=== PATIENT | female | born 1960 | race Caucasian/White ===

== ENCOUNTER → 2018-06-05 | Outpatient (CLI) | payer BC ==
[2018-06-07 12:39] LABS: QUANTIF MITOGEN-NIL >10.00 IU/ML; QUANTIFERON POSITIVE (NEGATIVE); QUANTIFERON NIL 0.19 IU/ML
== END | disposition home or self-care (01) ==
LOC: C.LAB 11:59
PROVIDERS: ATTEND Family Medicine
DX: Z01.84 Encounter for antibody response examination (principal); Z11.1 Encounter for screening for respiratory tuberculosis

== ENCOUNTER 2023-04-13 13:45 | Inpatient (IN) ==
[2023-04-13] MEDS ORDERED: SODIUM CHLORIDE 0.9% 500 ML IV STA (14:11)
[2023-04-13 14:45] LABS: Hematocrit (blood only) 39.9 % (37.0-47.0); Hemoglobin 13.7 g/dl (12.0-16.0); Mean Corpuscular Hemoglobin 29.1 pg (25.0-34.0); Mean Corpuscular Hgb Conc 34.3 g/dL (32.0-36.0); Mean Corpuscular Volume 84.9 fL (80.0-100.0); Mean Platelet Volume 10.5 fL (9.4-12.4); Platelet Count 163 K/uL (130-400); RDW Coefficient of Variation 13.3 % (11.5-14.5); RDW Standard Deviation 41.8 fL (36.4-46.3); White Blood Count 15.32 K/ul (4.8-10.8)
[2023-04-13 14:58] LABS: Albumin Globulin Ratio 1.3 (0.9-2); Albumin Level 3.9 gm/dl (3.4-5.0); BUN Creatinine Ratio 15.5 (10-20); Bilirubin,Total 1.4 mg/dl (0.2-1.0); Calcium 9.1 mg/dl (8.6-10.3); Creatinine Clr Calc Pharmacy 33.8 ml/min; Est GFR (African American) 35.5 ml/min; Est GFR (Non-African American) 30.7 ml/min; Potassium 3.3 mmol/L (3.5-5.1); Total Protein 6.9 gm/dl (6.0-8.3)
[2023-04-13] MEDS ORDERED: SODIUM CHLORIDE 0.9% 1000ML 2,000 ML IV ONE (15:23)
--- NOTE | 2023-04-13 15:23 | Emergency Department Note ---
History of Present Illness General Chief complaint: Kidney Stone Stated complaint: REF BY DOC, KIDNEY STONE Time Seen by Provider: 04/13/23 14:59 History of Present Illness 62-year-old female with past medical history significant for kidney stones, hypertension, dyslipidemia who presents emergency department for evaluation of kidney stone. Patient was referred to the ED following being seen by her PCP earlier this morning. Patient states she started with left lower quadrant abdominal pain and vomiting on Sunday night. She noted some urinary frequency as well. She states these symptoms have since resolved however she notes continuing to feel "lousy" prompting evaluation by her PCP. Patient was febrile in her PCPs office as well as with her recent left abdominal pain she was referred to get an outpatient abdomen/pelvis CT scan. She was placed on Bactrim for presumed UTI. Outpatient CT scan noted left 10 mm obstructing calculus in the left proximal ureter with associated hydronephrosis and she was referred to ED at that time. Currently, patient denies fever/chills, nausea/vomiting, chest pain, shortness of breath, abdominal pain, diarrhea/constipation, urinary symptoms. She took 1 dose of her Bactrim so far. She has not taken anything for pain as she has none. Patient follows with Dr. Frye urology and has had lithotripsy and stenting placed for kidney stones previously but was on the right side. Home Medications Medication Instructions Recorded Confirmed Type cholecalciferol (vitamin D3) 50 2,000 units PO QAM 08/19/19 04/13/23 History mcg (2,000 unit) capsule multivitamin 1 tab PO QAM 08/19/19 04/13/23 History aspirin 81 mg tablet,delayed 81 mg PO QAM 10/31/19 04/13/23 History release atorvastatin 10 mg tablet 10 mg PO PM 10/31/19 04/13/23 History calcium carbonate 600 mg-vitamin 1 tab PO QAM 11/07/19 04/13/23 History D3 5 mcg (200 unit) tablet (Calcium 600 + D(3)) vitamin E 268 mg (400 unit) capsule 400 unit PO QAM 12/24/19 04/13/23 History loratadine 10 mg tablet (Claritin) 10 mg PO DAILY PRN Allergy Symptoms 01/15/20 04/13/23 History finasteride 5 mg tablet 2.5 mg PO DAILY #60 tabs 09/25/22 04/13/23 Rx losartan 25 mg tablet 25 mg PO DAILY #90 tabs 09/25/22 04/13/23 Rx sulfamethoxazole 800 1 tab PO BID 5 days #10 tabs 04/13/23 04/13/23 Rx mg-trimethoprim 160 mg tablet (Bactrim DS) tamsulosin 0.4 mg capsule 0.4 mg PO DAILY #5 caps 04/13/23 04/13/23 Rx Allergies Allergy/AdvReac Type Severity Reaction Status Date / Time shellfish derived AdvReac Intermediate Gastrointestinal Verified 04/13/23 10:19 Upset lisinopril AdvReac cough Verified 04/13/23 10:19 Past Med/Surg History Medical History Endometriosis s/p hysterectomy with BSO History of PCOS s/p hysterectomy with BSO Hyperlipidemia Kidney stones Surgical History History of cataract surgery bilat History of colonoscopy History of lithotripsy with ESWL S/P abdominoplasty S/P hysterectomy BOB with BSO S/P laparoscopy x2 Family History Mother Asthma Grandmother (Paternal) Stroke Father Prostate cancer Hypertension Grandfather Diabetes Hypertension Grandmother (Maternal) Breast cancer Other Cancer No family history of adverse response to anesthesia Ovarian cancer Denies family history of Myocardial infarction Colorectal cancer Uterine cancer Social History Smoking Status: Never smoker Second Hand Exposure: No; Do You Dip or Chew Tobacco: No; Tobacco Cessation Education Requested by Patient: No Hx Alcohol Use: Yes Alcohol type: beer Hx Substance Use: No Preferred Language: Nepali Communication Ability: Effective Visual Impairment: No Limitations Claims Manager Required: No Beliefs That Will Affect Care: None marital status: Current Living Situation: Spouse Current Living Situation Comment: and dog current occupational status: employed Other Information That Helps Us Care for You: No Feels Safe at Home: Yes Safety Concerns: Feels Safe At This Time Assistive Devices: None Physical Exam Vital Signs Vital Signs - 24 hr 04/13/23 14:08 Temperature 36.2 C L Temperature Source Temporal Artery Scan Pulse Rate 100 H Respiratory Rate 16 Blood Pressure 109/59 L Blood Pressure Mean 75 Pulse Oximetry 97 Oxygen Delivery Method Room Air Sepsis Recent Fever Within 48 Hours No Sepsis New/Unexplained Change in Mental Status No Sepsis Action Taken by Nursing No Action Required Constitutional: alert and oriented x3. no acute distress. HEENT: normocephalic, atraumatic. normal conjunctiva.PERRLA. EOM's grossly intact. Respiratory: lungs are clear to auscultation without wheezes, rhonchi, or rales bilaterally. equal chest rise. normal respiratory effort, no accessory muscle use. Cardiovascular: normal heart sounds without murmur. regular rate and rhythm. GI: abdomen is soft, nontender. No palpable masses. No rebound tenderness or guarding. Left CVA tenderness MSK: Moves all 4 extremities spontaneously Peripheral vascular: extremities warm and well perfused Psych:appropriate mood and affect. Course Administered Medications Discontinued Medications Sodium Chloride (Nss) 500 mls @ 999 mls/hr IV .Q31M STA Stop: 04/13/23 14:41 Last Infusion: 04/13/23 16:00 Dose: 0 mls/hr Documented By: Admin: 04/13/23 15:31 Dose: 999 mls/hr Documented By: SHONA Sodium Chloride (Nss 1000ml) 2,000 mls @ 999 mls/hr IV .Q2H1M ONE Stop: 04/13/23 17:23 Last Infusion: 04/13/23 17:34 Dose: 0 mls/hr Documented By: Admin: 04/13/23 15:31 Dose: 999 mls/hr Documented By: SHONA Ceftriaxone Sodium (Rocephin) 2,000 mg in 70 mls @ 140 mls/hr IV NOW STA Stop: 04/13/23 16:16 Last Infusion: 04/13/23 16:45 Dose: 0 mls/hr Documented By: Admin: 04/13/23 15:59 Dose: 140 mls/hr Documented By: SHONA Sodium Chloride (Nss 1000ml) 1,000 mls @ 999 mls/hr IV .Q1H1M ONE Stop: 04/13/23 17:05 Last Admin: 04/13/23 16:20 Dose: Not Given Documented By: SHONA Medical Decision Making Differential Diagnosis Nephrolithiasis, UTI, pyelonephritis, acute renal failure, viral gastroenterit is, diverticulitis, appendicitis, SBO as well as other pathologies Laboratory Data Attestation: I reviewed the patient's lab results. 04/13/23 14:20 04/13/23 14:20 Lab Results 04/13/23 04/13/23 04/13/23 Range/Units 14:20 14:20 14:20 WBC 15.32 H (4.8-10.8) K/ul RBC 4.70 (4.20-5.40) M/uL Hgb 13.7 (12.0-16.0) g/dl Hct 39.9 (37.0-47.0) % MCV 84.9 (80.0-100.0) fL MCH 29.1 (25.0-34.0) pg MCHC 34.3 (32.0-36.0) g/dL RDW Std Deviation 41.8 (36.4-46.3) fL RDW Coeff of Ayad 13.3 (11.5-14.5) % Plt Count 163 (130-400) K/uL MPV 10.5 (9.4-12.4) fL Neutrophils % (Manual) 94 % Lymphocytes % (Manual) 2 % Monocytes % (Manual) 3 % Metamyelocytes % (Man) 1 % Neutrophils # (Manual) 14.40 H (1.40-6.50) K/uL Total Absolute Neuts 14.40 H (1.4-6.5) K/uL Lymphocytes # (Manual) 0.31 L (1.2-3.4) K/uL Total Abs Lymphocytes 0.31 L (1.2-3.4) K/uL Monocytes # (Manual) 0.46 (0.11-0.59) K/uL Metamyelocytes # (Man) 0.15 H (0-0) K/uL Echinocytes 1+ Sodium 137 (136-145) mmol/L Potassium 3.3 L (3.5-5.1) mmol/L Chloride 102 (98-107) mmol/L Carbon Dioxide 23 (21-32) mmol/L Anion Gap 12 H (3-11) BUN 27 H (6-23) mg/dl Creatinine 1.74 H (0.6-1.2) mg/dl Est Cr Clr Drug Dosing 33.8 ml/min Est GFR ( Amer) 35.5 ml/min Est GFR (Non-Af Amer) 30.7 ml/min BUN/Creatinine Ratio 15.5 (10-20) Glucose 133 H (70-99(Fasting)) mg/dl Calcium 9.1 (8.6-10.3) mg/dl Total Bilirubin 1.4 H (0.2-1.0) mg/dl AST 22 (13-39) U/L ALT 25 (7-52) U/L Alkaline Phosphatase 127 H (34-104) U/L Total Protein 6.9 (6.0-8.3) gm/dl Albumin 3.9 (3.4-5.0) gm/dl Globulin 3.0 (2.5-4.0) gm/dl Albumin/Globulin Ratio 1.3 (0.9-2) Procalcitonin 80.25 H (0-0.5) ng/ml Urine Color Urine Appearance (Clear) Urine pH (4.5-7.5) Ur Specific [place] (1.000-1.030) Urine Protein (Negative) Urine Glucose (UA) (Negative) Urine Ketones (Negative) Urine Blood (Negative) Urine Nitrite (Negative) Urine Bilirubin (Negative) Urine Urobilinogen (Negative) Ur Leukocyte Esterase (Negative) Urine RBC (0-4) /hpf Urine WBC (0-5) /hpf Ur Epithelial Cells (0-5) /lpf Urine Bacteria (Negative) 04/13/23 Range/Units 15:30 WBC (4.8-10.8) K/ul RBC (4.20-5.40) M/uL Hgb (12.0-16.0) g/dl Hct (37.0-47.0) % MCV (80.0-100.0) fL MCH (25.0-34.0) pg MCHC (32.0-36.0) g/dL RDW Std Deviation (36.4-46.3) fL RDW Coeff of Ayad (11.5-14.5) % Plt Count (130-400) K/uL MPV (9.4-12.4) fL Neutrophils % (Manual) % Lymphocytes % (Manual) % Monocytes % (Manual) % Metamyelocytes % (Man) % Neutrophils # (Manual) (1.40-6.50) K/uL Total Absolute Neuts (1.4-6.5) K/uL Lymphocytes # (Manual) (1.2-3.4) K/uL Total Abs Lymphocytes (1.2-3.4) K/uL Monocytes # (Manual) (0.11-0.59) K/uL Metamyelocytes # (Man) (0-0) K/uL Echinocytes Sodium (136-145) mmol/L Potassium (3.5-5.1) mmol/L Chloride (98-107) mmol/L Carbon Dioxide (21-32) mmol/L Anion Gap (3-11) BUN (6-23) mg/dl Creatinine (0.6-1.2) mg/dl Est Cr Clr Drug Dosing ml/min Est GFR ( Amer) ml/min Est GFR (Non-Af Amer) ml/min BUN/Creatinine Ratio (10-20) Glucose (70-99(Fasting)) mg/dl Calcium (8.6-10.3) mg/dl Total Bilirubin (0.2-1.0) mg/dl AST (13-39) U/L ALT (7-52) U/L Alkaline Phosphatase (34-104) U/L Total Protein (6.0-8.3) gm/dl Albumin (3.4-5.0) gm/dl Globulin (2.5-4.0) gm/dl Albumin/Globulin Ratio (0.9-2) Procalcitonin (0-0.5) ng/ml Urine Color Dark Yellow Urine Appearance Cloudy A (Clear) Urine pH 5.5 (4.5-7.5) Ur Specific [place] >= 1.030 (1.000-1.030) Urine Protein 3+ H (Negative) Urine Glucose (UA) Negative (Negative) Urine Ketones Trace H (Negative) Urine Blood 3+ H (Negative) Urine Nitrite Negative (Negative) Urine Bilirubin 1+ H (Negative) Urine Urobilinogen Negative (Negative) Ur Leukocyte Esterase 3+ H (Negative) Urine RBC 5-10 H (0-4) /hpf Urine WBC >30 H (0-5) /hpf Ur Epithelial Cells 10-20 H (0-5) /lpf Urine Bacteria 4+ H (Negative) MDM Narrative 62-year-old female who presents emergency department following referral by her PCP for left kidney stone on outpatient CT scan. Review of pertinent visits and past medical history performed. Vital signs in ED demonstrate blood pressure 109/59 as well as mild tachycardia of 100. She is afebrile. IV access was established and labs were obtained. CBC significant for leukocytosis of 15 with left shift. No acute anemia. CMP demonstrates mild hypokalemia at 3.3 and YEHUDA 1.74 (baseline 0.9-1). Total bilirubin 1.4. Alk phos mildly elevated at 127. Procalcitonin 80. Lactate 1.6. Blood cultures sent. Urinalysis demonstrates +3 leukocyte esterase, +3 blood, no nitrates. Urine culture sent. Outpatient CT abdomen/pelvis was reviewed and demonstrates 10 mm calculus at the left proximal ureter with associated hydronephrosis and perinephritic edema. On exam, patient is nontoxic-appearing in no acute distress. Lungs CTA. Abdominal exam positive for left CVA tenderness otherwise soft and nontender. She was treated initially with 2 L IV fluids. She declined need for pain or nausea medications. Given findings of large kidney stone with hydronephrosis as well as YEHUDA, case was discussed with on-call urology Dr. Frye. He recommended admission to hospital for IV fluids, antibiotics for presumed infection and will see her in consultation for possible surgical management of kidney stone. Upon reevaluation, patient remained stable with no new concerns. She was updated on all exam findings and test results as well as recommendations from Dr. Frye. She is agreeable to admission. Case was discussed with hospitalist, Dr. Saucedo, who graciously accepted patient to his service for further work up and management. She was given dose of IV Rocephin here in the ED for presumed urosepsis. She was admitted to the hospital in stable condition. Impression & Plan Left nephrolithiasis, YEHUDA (acute kidney injury), Hydronephrosis due to obstruction of ureter, Leukocytosis Discharge Plan Visit Data Chief Complaint: Kidney Stone Stated Complaint: REF BY DOC, KIDNEY STONE ED Provider: Kalen Cruz ED Midlevel Provider: Jasmin Moore Discharge Problem: Left nephrolithiasis, YEHUDA (acute kidney injury), Hydronephrosis due to obstruction of ureter, Leukocytosis Patient Disposition: Admitted As Inpatient Discharge Instructions Interventions: ED Discharge Assessment Last Done: 04/13/23 19:25
[2023-04-13 15:28] LABS: Echinocytes 1+
[2023-04-13] MEDS ORDERED: cefTRIAXone SODIUM 2,000 MG/70 ML BAG IV STA (15:47)
[2023-04-13 15:51] LABS: ALC (manual) 0.31 K/uL (1.2-3.4); Lymphocytes # (manual) 0.31 K/uL (1.2-3.4); Lymphocytes % (manual) 2 %; Metamyelocytes # (manual) 0.15 K/uL (0-0); Metamyelocytes % (manual) 1 %; Monocytes # (manual) 0.46 K/uL (0.11-0.59); Monocytes % (manual) 3 %; Neutrophils % (manual) 94 %
--- NOTE | 2023-04-13 15:54 | History & Physical Report ---
Date of Service April 13, 2023 Assessment & Plan (1) Sepsis: Plan: Thania is a 62-year-old female with a past medical history of hypertension, dyslipidemia, kidney stones who presents for evaluation of pain suspected related to a recurrent kidney stone. Pain began in the left lower quadrant 2 days prior to presentation, has had increased urinary frequency. While her initial abdominal pain and frequency improved, she continues to be fatigued and went to see her PCP at which visit she was noted to be febrile. She was placed empirically on Bactrim and had an outpatient CT scan which showed a 10 mm obstructing calculus in the left proximal ureter with associated hydronephrosis and was referred to the ER. Urosepsis due to UTI with obstructing left nephrolithiasis CTA/P: Moderate left-sided hydro secondary to obstructing 10 mm calculus of proximal left ureter. Bilateral nephrolithiasis. Unchanged hepatic hemangiomata. Hepatic steatosis. Reactive left perinephric edema. Baseline creatinine approximately 1.0, admitting creatinine 1.74 Leukocytosis of 15, febrile up to 100.4, hypotensive, and tachycardic EKG pending, sinus tachycardia on bedside monitor With urinary symptoms including polyuria, UA is pending but with clear shaking chills/rigors suspect urosepsis in the setting of a stone Pro-Wilfrido pending, lactate pending Received 1 L of fluid on admission. No history of heart failure. Additional liter of fluid ordered, this completes 30 cc/kg of adjusted body weight Heart rate downtrending with fluid Rocephin 2 g daily for complicated UTI. Bactrim discontinued. Urology consulted for surgical management of 10 mm stone. . plan is to treat medically, infection and once more stable then pursue surgical management of stone. 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 at midnight (2) UTI (urinary tract infection): (3) Dyslipidemia: (4) Hyperglycemia: (5) HTN (hypertension): History of Present Illness Primary Care Provider: Denisa Black MD Thania is a 62-year-old female with a past medical history of hypertension, dyslipidemia, kidney stones who presents for evaluation of pain suspected related to a recurrent kidney stone. Pain began in the left lower quadrant 2 days prior to presentation, has had increased urinary frequency. While her initial abdominal pain and frequency improved, she continues to be fatigued and went to see her PCP at which visit she was noted to be febrile. She was placed empirically on Bactrim and had an outpatient CT scan which showed a 10 mm obstructing calculus in the left proximal ureter with associated hydronephrosis and was referred to the ER. Weds-Today LLQ pain and polyuria. No dysuria. Pain initially felt similar to prior stones, now improved. Has had stents for recurrent history of stones in the past, no stents currently. 1/2 bowel cereal this mroning No nausea but +vomiting with pain. Shaking chills/rigors this morning and we night Temp was 96 at home, but earlier in the morning at PCP was 100.6 HR this morning 140s. HTN on losartan, some lability between 120-140. Takes a daily aspirin but does not know why. NO hx SC or Stroke. no history of DM. Had a stress test in 2019, normal, does not remember exactly why but denies any heart problems/chest pain/angina. No blood vessle problems, no lung problems, no heart problems No diarrhea/constipation Medical History: Reviewed. Medications: Reviewed Surgical History: Reviewed Family history: Reviewed Allergies: Reviewed. lisinopril cough. Social History: No tobacco, rare social ETOH intermittently. Code Status:Full Allergies Allergy/AdvReac Type Severity Reaction Status Date / Time shellfish derived AdvReac Intermediate Gastrointestinal Verified 04/13/23 10:19 Upset lisinopril AdvReac cough Verified 04/13/23 10:19 Home Medications Medication Instructions Recorded Confirmed Type cholecalciferol (vitamin D3) 50 2,000 units PO QAM 08/19/19 04/13/23 History mcg (2,000 unit) capsule multivitamin 1 tab PO QAM 08/19/19 04/13/23 History aspirin 81 mg tablet,delayed 81 mg PO QAM 10/31/19 04/13/23 History release atorvastatin 10 mg tablet 10 mg PO PM 10/31/19 04/13/23 History calcium carbonate 600 mg-vitamin 1 tab PO QAM 11/07/19 04/13/23 History D3 5 mcg (200 unit) tablet (Calcium 600 + D(3)) vitamin E 268 mg (400 unit) capsule 400 unit PO QAM 12/24/19 04/13/23 History loratadine 10 mg tablet (Claritin) 10 mg PO DAILY PRN Allergy Symptoms 01/15/20 04/13/23 History finasteride 5 mg tablet 2.5 mg PO DAILY #60 tabs 09/25/22 04/13/23 Rx losartan 25 mg tablet 25 mg PO DAILY #90 tabs 09/25/22 04/13/23 Rx sulfamethoxazole 800 1 tab PO BID 5 days #10 tabs 04/13/23 04/13/23 Rx mg-trimethoprim 160 mg tablet (Bactrim DS) tamsulosin 0.4 mg capsule 0.4 mg PO DAILY #5 caps 04/13/23 04/13/23 Rx Past Med/Surg History Medical History Endometriosis s/p hysterectomy with BSO History of PCOS s/p hysterectomy with BSO Hyperlipidemia Kidney stones Surgical History History of cataract surgery bilat History of colonoscopy History of lithotripsy with ESWL S/P abdominoplasty S/P hysterectomy BOB with BSO S/P laparoscopy x2 Family History Mother Asthma Grandmother (Paternal) Stroke Father Prostate cancer Hypertension Grandfather Diabetes Hypertension Grandmother (Maternal) Breast cancer Other Cancer No family history of adverse response to anesthesia Ovarian cancer Denies family history of Myocardial infarction Colorectal cancer Uterine cancer Social History Smoking Status: Never smoker Second Hand Exposure: Yes ( KID); Do You Dip or Chew Tobacco: No; Hx Alcohol Use: Yes Alcohol type: wine and hard liquor Hx Substance Use: No Preferred Language: Welsh Communication Ability: Effective Visual Impairment: No 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 NAD. Cooperative. HEENT: Atraumatic, normocephalic. Vision/hearing grossly intact Pulm: CTAB A&P. -wheezes, -rales, -rhonchi. Symmetrical chest rise. No increased work of breathing. No respiratory distress. Cardiac: Regular, tachycardic, -mrg. Radial pulses intact and symmetrical. Abdominal: Nontender, nondistended, soft. BS present. No CVA tenderness is present at time of admission Extremities: Warm, dry. No edema. Moves all extremities equally Results & Data Results & Data Vital Signs (Past 12 Hours) Vital Signs Temp Pulse Resp BP Pulse Ox O2 Del Method 04/13/23 14:08 36.2 C L 100 H 16 109/59 L 97 Room Air PG Care Time/CCT Total # of Minutes Spent Total Time Spent with Patient: Total time spent is greater than 50% in coordination of care (as documented) at patient's floor/unit and/or counseling patient: Coding Level of Care Code 06099 INT INP/OBS CARE 3/75MIN Diagnoses Sepsis A41.9 UTI (urinary tract infection) N39.0 Dyslipidemia E78.5 Hyperglycemia R73.9 HTN (hypertension) I10
[2023-04-13 16:01] LABS: Appearance Urine Cloudy (Clear); Bilirubin Urine 1+ (Negative); Blood Urine 3+ (Negative); Glucose Urine UA Negative (Negative); Ketones Urine Trace (Negative); Leukocyte Esterase Urine 3+ (Negative); Nitrite Urine Negative (Negative); Protein Urine 3+ (Negative); Specific Gravity Urine >= 1.030 (1.000-1.030); Urobilinogen Urine Negative (Negative); pH Urine 5.5 (4.5-7.5)
[2023-04-13] MEDS ORDERED: SODIUM CHLORIDE 0.9% 1000ML 1,000 ML IV ONE (16:05)
[2023-04-13 16:45] LABS: Color Urine Dark Yellow
[2023-04-13 16:48] LABS: Bacteria Urine 4+ (Negative); WBC Urine >30 /hpf (0-5)
[2023-04-13] MEDS ORDERED: HYDROmorphone INJ 1 MG/ML SYRINGE IV PRN (18:35)
[2023-04-13] MEDS ORDERED: ONDANSETRON INJ 2 MG/ML 2 ML VIAL IV PRN (18:35)
[2023-04-13] MEDS ORDERED: HYDROmorphone INJ 0.5 MG/0.5 ML SYR IV PRN (18:35)
[2023-04-13] MEDS: ATORVASTATIN 10 MG TAB PO SCH (21:35)
[2023-04-13] MEDS: HEPARIN SOD 5,000 UNIT/0.5 ML VIAL SQ SCH (21:35)
[2023-04-13] MEDS: SODIUM CHLORIDE 0.9% 1000ML 1,000 ML IV SCH (21:39)
[2023-04-14] MEDS: SODIUM CHLORIDE 0.9% 1000ML 1,000 ML IV SCH ×3 (05:50→17:55)
[2023-04-14 07:42] LABS: Hematocrit (blood only) 35.3 % (37.0-47.0); Hemoglobin 11.8 g/dl (12.0-16.0); Mean Corpuscular Hgb Conc 33.4 g/dL (32.0-36.0); Mean Corpuscular Volume 86.7 fL (80.0-100.0); Mean Platelet Volume 10.7 fL (9.4-12.4); Platelet Count 154 K/uL (130-400); RDW Coefficient of Variation 13.6 % (11.5-14.5); RDW Standard Deviation 42.7 fL (36.4-46.3); Red Blood Count 4.07 M/uL (4.20-5.40); White Blood Count 13.66 K/ul (4.8-10.8)
[2023-04-14 07:58] LABS: BUN Creatinine Ratio 17.7 (10-20); Calcium 8.3 mg/dl (8.6-10.3); Creatinine Clr Calc Pharmacy 45.9 ml/min; Est GFR (African American) 59.9 ml/min; Est GFR (Non-African American) 51.7 ml/min; Potassium 3.5 mmol/L (3.5-5.1)
[2023-04-14 08:14] LABS: Basophils # (auto) 0.04 K/uL (0-0.2); Basophils % (auto) 0.3 %; Eosinophils # (auto) 0.05 K/uL (0-0.50); Eosinophils % (auto) 0.4 %; Immature Granulocytes # (auto) 0.63 K/uL (0.01-0.20); Immature Granulocytes % (auto) 4.6 %; Lymphocytes # (auto) 0.54 K/uL (1.2-3.4); Monocytes # (auto) 0.82 K/uL (0.11-0.59); Neutrophils # (auto) 11.58 K/uL (1.40-6.50); Neutrophils % (auto) 84.7 %
[2023-04-14] MEDS: HEPARIN SOD 5,000 UNIT/0.5 ML VIAL SQ SCH ×2 (08:40→20:22)
[2023-04-14] MEDS: FINASTERIDE 5 MG TAB PO SCH (08:41)
[2023-04-14] MEDS: ASPIRIN 81 MG ECTAB PO SCH (08:41)
[2023-04-14] MEDS: TAMSULOSIN HCL 0.4 MG CAP PO SCH (08:42)
--- NOTE | 2023-04-14 09:06 | Anesthesiology Consultation ---
Date of Service April 14, 2023 Assessment & Plan Chart Review Chart Review: entry specialists initiated History Surgery Operation Date: 04/14/23 09:00 Proposed Procedures p Cystoscopy, Stent Insertion - Hermes Frye DO Height/Weight Height: 5 ft 5 in Weight: 62.8 kg Allergies Allergy/AdvReac Type Severity Reaction Status Date / Time shellfish derived AdvReac Intermediate Gastrointestinal Verified 04/13/23 10:19 Upset lisinopril AdvReac cough Verified 04/13/23 10:19 Medications Home Medications Medication Instructions Recorded Confirmed Last Taken cholecalciferol (vitamin D3) 50 2,000 units PO QAM 08/19/19 04/13/23 01/14/20 07:00 mcg (2,000 unit) capsule multivitamin 1 tab PO QAM 08/19/19 04/13/23 01/14/20 07:00 aspirin 81 mg tablet,delayed 81 mg PO QAM 10/31/19 04/13/23 01/08/20 release atorvastatin 10 mg tablet 10 mg PO PM 10/31/19 04/13/23 01/14/20 22:00 calcium carbonate 600 mg-vitamin 1 tab PO QAM 11/07/19 04/13/23 01/14/20 07:00 D3 5 mcg (200 unit) tablet (Calcium 600 + D(3)) vitamin E 268 mg (400 unit) capsule 400 unit PO QAM 12/24/19 04/13/23 01/08/20 loratadine 10 mg tablet (Claritin) 10 mg PO DAILY PRN Allergy Symptoms 01/15/20 04/13/23 Unknown finasteride 5 mg tablet 2.5 mg PO DAILY #60 tabs 09/25/22 04/13/23 Unknown losartan 25 mg tablet 25 mg PO DAILY #90 tabs 09/25/22 04/13/23 Unknown sulfamethoxazole 800 1 tab PO BID 5 days #10 tabs 04/13/23 04/13/23 Unknown mg-trimethoprim 160 mg tablet (Bactrim DS) tamsulosin 0.4 mg capsule 0.4 mg PO DAILY #5 caps 04/13/23 04/13/23 Unknown Active Medications Generic Name Dose Route Start Last Admin Trade Name Freq PRN Reason Stop Dose Admin Aspirin 81 mg 04/14/23 09:00 04/14/23 08:41 Aspirin 81 Mg Ectab PO 05/14/23 08:59 81 mg QAM BOB Administration Atorvastatin Calcium 10 mg 04/13/23 21:00 04/13/23 21:35 Atorvastatin 10 Mg Tab PO 05/13/23 20:59 10 mg PM BOB Administration Finasteride 2.5 mg 04/14/23 09:00 04/14/23 08:41 Finasteride 5 Mg Tab PO 05/14/23 08:59 2.5 mg DAILY BOB Administration Heparin Sodium (Porcine) 5,000 units 04/13/23 21:00 04/14/23 08:40 Heparin Sod 5,000 Unit/0.5 Ml Vial SQ 05/13/23 20:59 5,000 units Q12 BOB Administration Sodium Chloride 1,000 mls @ 125 mls/hr 04/13/23 18:35 04/14/23 05:50 Nss 1000ml IV 05/13/23 18:34 125 mls/hr .Q8H BOB Administration Tamsulosin HCl 0.4 mg 04/14/23 09:00 04/14/23 08:42 Tamsulosin Hcl 0.4 Mg Cap PO 05/14/23 08:59 0.4 mg DAILY BOB Administration Past Medical History Medical History Endometriosis s/p hysterectomy with BSO History of PCOS s/p hysterectomy with BSO Hyperlipidemia Kidney stones Past Family History Family History Mother Asthma Grandmother (Paternal) Stroke Father Prostate cancer Hypertension Grandfather Diabetes Hypertension Grandmother (Maternal) Breast cancer Other Cancer No family history of adverse response to anesthesia Ovarian cancer Denies family history of Myocardial infarction Colorectal cancer Uterine cancer Past Surgical History Surgical History History of cataract surgery bilat History of colonoscopy History of lithotripsy with ESWL S/P abdominoplasty S/P hysterectomy BOB with BSO S/P laparoscopy x2 Social History Smoking Status: Never smoker Do You Dip or Chew Tobacco: No Hx Alcohol Use: Yes Alcohol type: beer alcohol intake frequency: 0-2 drinks per day Alcohol Intake Frequency Comment: 1 drink per day average, last drink sunday Hx Substance Use: No substance use type: does not use Physical Exam Vital Signs Last Vital Signs Temp 99.7 F H 04/14/23 07:51 Pulse 87 04/14/23 07:54 Resp 18 04/14/23 07:51 BP 134/78 04/14/23 07:51 Pulse Ox 96 04/14/23 07:51 O2 Del Method Room Air 04/14/23 07:51 Testing Laboratory Results 04/14/23 07:09 04/14/23 07:09 Urine Color Dark Yellow 04/13/23 15:30 Urine Appearance Cloudy (Clear) A 04/13/23 15:30 Urine pH 5.5 (4.5-7.5) 04/13/23 15:30 Ur Specific [place] >= 1.030 (1.000-1.030) 04/13/23 15:30 Urine Protein 3+ (Negative) H 04/13/23 15:30 Urine Glucose (UA) Negative (Negative) 04/13/23 15:30 Urine Ketones Trace (Negative) H 04/13/23 15:30 Urine Nitrite Negative (Negative) 04/13/23 15:30 Ur Leukocyte Esterase 3+ (Negative) H 04/13/23 15:30 Urine RBC 5-10 /hpf (0-4) H 04/13/23 15:30 Urine WBC >30 /hpf (0-5) H 04/13/23 15:30 Ur Epithelial Cells 10-20 /lpf (0-5) H 04/13/23 15:30 04/13/23 15:30 Urine Culture - Preliminary Urine,Clean Catch Gram negative bacilli Electrocardiogram Date: 04/13/23 Normal sinus rhythm, rate 91 bpm Prolonged QT Abnormal ECG No previous ECGs available
--- NOTE | 2023-04-14 09:38 | Urology Consultation ---
Date of Consultation April 14, 2023 Assessment & Plan (1) Left nephrolithiasis: (2) YEHUDA (acute kidney injury): (3) Hydronephrosis due to obstruction of ureter: (4) Complicated UTI (urinary tract infection): (5) Elevated serum creatinine: Plan Patient with significant stone on left side causing hydronephrosis. Patient has history of stone disease. Had previously had right-sided stones treated. Had increasing size of stones when last visit. Was considering possibly moving forward with intervention with ESWL and the coming months. Patient has not had any major increase in UTI symptoms. Continues to have lower urinary tract issues with flank pain and discomfort. Approximately 10 mm stone on the left at UPJ/proximal ureter causing hydronephrosis. Perinephric stranding. Patient's UA was nitrite positive and has been on broad-spectrum antibiotics. Patient's hemoglobin is 11.8. White count 13.66. Creatinine 1.13. The patient had presented with YEHUDA this is a been improving. Patient has undergone hydration. Is being treated with supportive care. Due to large size of stone as well as ongoing issues and discomfort patient is continuing to have problems and issues. Discussed extensively different options. Reviewed extensively moving forward. Patient is well-known with history of stone disease. Reviewed different options moving forward. CT imaging was reviewed interpreted by myself. Stone appears to be obstructing and causing considerable issues. Reviewed options for intervention. Patient complicated medical and surgical history is reviewed and summarized above. Risks and benefits discussed at length for procedure. These include bleeding, infection, injury to surrounding tissues or organs, and risks associated with anesthesia. Patient states understanding and agrees to proceed. Will sign consent and schedule. Plan for cystoscopy and left stent placement History of Present Illness Attending Physician: Jose Encinas MD History of Present Illness New consultation for patient with stone, discomfort, obstruction, and ill feelings. Patient developed sudden onset of pain into flank going down and radiating into groin and back in waves comes and goes. Can be severe at times. Discussed and reviewed patient's family history for any history of stone disease. Also, discussed patient's medical surgery history especially related to any history of urinary issues or stone disease. Patient was admitted and is undergoing observation. Allergies Allergy/AdvReac Type Severity Reaction Status Date / Time shellfish derived AdvReac Intermediate Gastrointestinal Verified 04/13/23 10:19 Upset lisinopril AdvReac cough Verified 04/13/23 10:19 Home Medications Medication Instructions Recorded Confirmed Type cholecalciferol (vitamin D3) 50 2,000 units PO QAM 08/19/19 04/13/23 History mcg (2,000 unit) capsule multivitamin 1 tab PO QAM 08/19/19 04/13/23 History aspirin 81 mg tablet,delayed 81 mg PO QAM 10/31/19 04/13/23 History release atorvastatin 10 mg tablet 10 mg PO PM 10/31/19 04/13/23 History calcium carbonate 600 mg-vitamin 1 tab PO QAM 11/07/19 04/13/23 History D3 5 mcg (200 unit) tablet (Calcium 600 + D(3)) vitamin E 268 mg (400 unit) capsule 400 unit PO QAM 12/24/19 04/13/23 History loratadine 10 mg tablet (Claritin) 10 mg PO DAILY PRN Allergy Symptoms 01/15/20 04/13/23 History finasteride 5 mg tablet 2.5 mg PO DAILY #60 tabs 09/25/22 04/13/23 Rx losartan 25 mg tablet 25 mg PO DAILY #90 tabs 09/25/22 04/13/23 Rx sulfamethoxazole 800 1 tab PO BID 5 days #10 tabs 04/13/23 04/13/23 Rx mg-trimethoprim 160 mg tablet (Bactrim DS) tamsulosin 0.4 mg capsule 0.4 mg PO DAILY #5 caps 04/13/23 04/13/23 Rx Patient History Medical History Endometriosis s/p hysterectomy with BSO History of PCOS s/p hysterectomy with BSO Hyperlipidemia Kidney stones Surgical History History of cataract surgery bilat History of colonoscopy History of lithotripsy with ESWL S/P abdominoplasty S/P hysterectomy BOB with BSO S/P laparoscopy x2 Family History Mother Asthma Grandmother (Paternal) Stroke Father Prostate cancer Hypertension Grandfather Diabetes Hypertension Grandmother (Maternal) Breast cancer Other Cancer No family history of adverse response to anesthesia Ovarian cancer Denies family history of Myocardial infarction Colorectal cancer Uterine cancer Social History Smoking Status: Never smoker Second Hand Exposure: No; Do You Dip or Chew Tobacco: No; Tobacco Cessation Education Requested by Patient: No Hx Alcohol Use: Yes Alcohol type: beer Hx Substance Use: No Preferred Language: [place] Communication Ability: Effective Visual Impairment: No Limitations Landscape Horticulture Instructor Required: No Beliefs That Will Affect Care: None marital status: Current Living Situation: Spouse Current Living Situation Comment: and dog current occupational status: employed Other Information That Helps Us Care for You: No Feels Safe at Home: Yes Safety Concerns: Feels Safe At This Time Assistive Devices: None Review of Systems Review of Systems: All systems reviewed & are unremarkable except as noted in HPI & below Physical Exam Physical Exam: General: Alert and oriented x 3 in no acute distress. Patient is well nourished and well kept. HEENT: Normocephalic Atraumatic. Inspection normal. Cranial Nerves 2-12 Grossly intact. Nares are clear. Neck is supple. Normal inspection of face. Normal inspection of neck. Neurologic: No deficits on inspection. Baseline for motor function and sensory. Psychologic: Normal affect. Respiratory: Nonlabored. No use of accessory muscles. No tachypnea or dyspnea. Cardiovascular: No tachycardia Skin: [place] and Dry. No rashes or visible lesions. Extremities: Moving without issues. No motor deficits on inspection Lymphatics: No edema Abdomen: Soft Non-distended. No acites. No rebound or guarding. Results & Data Vital Signs (Past 12 Hours) Vital Signs Temp Pulse Pulse Pulse Resp BP Pulse Ox 04/14/23 07:54 87 04/14/23 07:51 37.6 C H 85 18 134/78 96 04/13/23 22:00 81 04/14/23 03:00 37.5 C 84 18 122/73 97 04/13/23 23:14 37.4 C 82 20 113/66 94 O2 Del Method 04/14/23 07:54 04/14/23 07:51 Room Air 04/13/23 22:00 04/14/23 03:00 Room Air 04/13/23 23:14 Room Air PG Care Time/CCT Total # of Minutes Spent Total Time Spent with Patient: Total time spent is greater than 50% in coordination of care (as documented) at patient's floor/unit and/or counseling patient: Coding Level of Care Code 14045 IN/OBS CONSULT LVL 5,80M Diagnoses Left nephrolithiasis N20.0 YEHUDA (acute kidney injury) N17.9 Hydronephrosis due to obstruction of ureter N13.1 Complicated UTI (urinary tract infection) N39.0 Elevated serum creatinine R79.89
[2023-04-14] MEDS ORDERED: ONDANSETRON INJ 2 MG/ML 2 ML VIAL IV PRN (09:54)
[2023-04-14] MEDS ORDERED: ePHEDrine sulfate 50 MG/ML AMP IV PRN (09:54)
[2023-04-14] MEDS ORDERED: ATROPINE SULFATE 0.1 MG/ML 10ML SYR IV PRN (09:54)
[2023-04-14] MEDS ORDERED: fentaNYL citrate PF 100 MCG/2 ML VIAL IV PRN (09:54)
--- NOTE | 2023-04-14 10:44 | Operative Report ---
PG Post Operative Report Pre & Post Diagnosis Obstructing left ureteral stone Same Operation Date: 04/14/23 09:00 <No data on this case meets the specified criteria> I identified the patient and participated in the time-out.: Yes Procedure cystoscopy with left retrograde pyelogram, urine aspiration, and stent placement Operation Date: 04/14/23 09:00 <No data on this case meets the specified criteria> Surgeon Hermes Frye, II, DO Harp Regulator None Estimated Blood Loss 1 Findings Consistent with Post-Op Diagnosis Stent placed in good position. Severely purulent urine from left kidney Specimens Urine for culture Drains 6 Fr by 26 cm Anesthesia Type MAC Complications none Disposition Disposition: Recovery Room Indications Patient with obstruction. Risks and benefits discussed at length. Description of Procedure Patient was consented and brought back to the operating room. Patient was placed under anesthesia in the supine position and moved to the dorsal lithotomy position. Patient was prepped and draped in the regular sterile fashion. A time out was completed. A 30degree Cystoscope was placed into the bladder and the entire bladder was e xamined. The UO's were identified. The UO was cannulized with a catheter and a wire was attempted to be placed. It took considerable manipulation but the wire was able to be advanced into the renal pelvis. The catheter was then placed over the wire into the renal pelvis. Urine was found to be severely purulent and an aspiration was completed. The urine was sent for culture and a retrograde pyelogram was completed. A wire was then placed. With the wire in place, a 6 Fr Double J stent was placed. It was confirmed with fluoroscopy. With the stent in place, the bladder was emptied. The scope was removed. The patient was cleaned, aroused from anesthesia, and transferred to the pacu in stable condition having tolerated the procedure well with no complications. I was present and participated in all aspects of the procedure. The patient will be monitored in the PACU until transferred. We will plan to monitor on the floor. Will likely need continued broad-spectrum antibiotics with plans for stone treatment and 1 to 2 weeks after clearing of infection. Can de-escalate antibiotics based on urine culture from left kidney I attest to the content of the Intraoperative Record and any orders documented therein. Any exceptions are noted below.
--- NOTE | 2023-04-14 10:50 | Fluoroscopy Report ---
FL retrograde includes kub CLINICAL HISTORY: RETROGRADE, STENT PLACEMENT COMPARISON STUDY: CT of the abdomen and pelvis April 13, 2023. FLUOROSCOPY TIME: 55 seconds. Ka, r: 15.34 mGy FLUOROSCOPIC IMAGES: 2 FINDINGS: Fluoroscopy was provided during left retrograde pyelogram and left ureteral stent insertion . The left ureteral stent appears appropriately positioned. IMPRESSION: Fluoroscopy provided during left retrograde pyelogram and left ureteral stent insertion. ACT 112: Negative or not required by law. Electronically signed by: Aidan Burkett M.D. 04/14/2023 10:48 AM
[2023-04-14] MEDS ORDERED: PROPOFOL IV EMULSION 10 MG/ML 20 ML VIAL IV ONE (10:53)
[2023-04-14] MEDS ORDERED: ONDANSETRON INJ 2 MG/ML 2 ML VIAL ONE (10:53)
[2023-04-14] MEDS ORDERED: LIDOCAINE 2% 2 ML VIAL/AMP(20MG/ML) INFIL ONE (10:53)
[2023-04-14] MEDS ORDERED: fentaNYL citrate PF 100 MCG/2 ML VIAL ONE (10:54)
[2023-04-14] MEDS ORDERED: ceFAZolin 330 MG/ML 1 GM VIAL ONE (10:54)
[2023-04-14] MEDS ORDERED: KETAMINE 50 MG/5 ML SYRINGE ONE (10:54)
[2023-04-14] MEDS ORDERED: MIDAZOLAM HCL 1 MG/ML 2ML VIAL ONE (10:54)
[2023-04-14] MEDS ORDERED: ceFAZolin 2000MG 2,000 MG/15 ML SYR IV ONE ×2 (10:58→11:06)
--- NOTE | 2023-04-14 11:18 | Anesthesiology Progress Note ---
Date of Service April 14, 2023 Anesthesia Post Procedure Vital Signs Vital Signs: Temp Pulse Pulse Pulse Resp BP BP 04/14/23 11:00 76 18 131/76 04/14/23 11:10 81 17 137/73 04/14/23 10:50 97.3 F L 84 14 111/59 L 04/14/23 07:54 87 04/14/23 07:51 99.7 F H 85 18 134/78 04/13/23 22:00 81 04/13/23 20:22 82 04/14/23 03:00 99.5 F 84 18 122/73 04/13/23 23:14 99.3 F 82 20 113/66 04/13/23 20:10 99.5 F 24 117/74 04/13/23 14:08 97.2 F L 100 H 16 109/59 L Pulse Ox O2 Del Method 04/14/23 11:00 95 Room Air 04/14/23 11:10 96 Room Air 04/14/23 10:50 94 Room Air 04/14/23 07:54 04/14/23 07:51 96 Room Air 04/13/23 22:00 04/13/23 20:22 04/14/23 03:00 97 Room Air 04/13/23 23:14 94 Room Air 04/13/23 20:10 96 Room Air 04/13/23 14:08 97 Room Air Pain Intensity Flank: Pain Intensity: 8 Transfer of Care Handoff Completed per policy Notes Mental Status: alert / awake / arousable and participated in evaluation Patient Amnestic to Procedure: Yes Nausea / Vomiting: adequately controlled Pain: adequately controlled Airway Patency, RR, SpO2: stable & adequate BP & HR: stable & adequate Hydration State: stable & adequate Anesthetic Complications: no major complications apparent and Pt Satisfied with anesthetic care
[2023-04-14] MEDS ORDERED: DIATRIZOATE MEGLUMINE 30% 100ML VIAL INSTIL ONE (11:25)
[2023-04-14 11:56] LABS: A calco-baum cmplx NotReported Not Detected (NotDetected); Bact fragilis Not Reported Not Detected (NotDetected); C auris Not Reported Not Detected (NotDetected); CTX-M Resistant Gene Not Detected (NotDetected); Calbicans Not Reported Not Detected (NotDetected); Candida glabrata Not Reported Not Detected (NotDetected); Candida krusei Not Reported Not Detected (NotDetected); Cneoformans/gatti Not Reported Not Detected (NotDetected); Cparapsilosis Not Reported Not Detected (NotDetected); Ctropicalis Not Reported Not Detected (NotDetected); E cloacae compx Not Reported Not Detected (NotDetected); Efaecalis Not Reported Not Detected (NotDetected); Efaecium Not Reported Not Detected (NotDetected); Enterobacterales DETECTED (NotDetected); Enterobacterales Not Reported DETECTED (NotDetected); Escherichia coli Not Reported DETECTED (NotDetected); H influenzae Not Reported Not Detected (NotDetected); IMP Resistant Gene Not Detected (NotDetected); K aerogenes Not Reported Not Detected (NotDetected); KPC Resistant Gene Not Detected (NotDetected); Koxytoca Not Reported Not Detected (NotDetected); Kpneumoniae grp Not Reported Not Detected (NotDetected); Lmonocyt Not Reported Not Detected (NotDetected); N meningitidis Not Reported Not Detected (NotDetected); NDM Resistant Gene Not Detected (NotDetected); OXA 48 Like Resistant Gene Not Detected (NotDetected); P aeruginosa Not Reported Not Detected (NotDetected); Proteus spp Not Reported Not Detected (NotDetected); Salmonella spp Not Reported Not Detected (NotDetected); Smarcescens Not Reported Not Detected (NotDetected); Staph lugdunensis Not Reported Not Detected (NotDetected); Staph spp. Not Reported Not Detected (NotDetected); Staphaureus Not Reported Not Detected (NotDetected); Staphepi Not Reported Not Detected (NotDetected); Stenmaltophilia Not Reported Not Detected (NotDetected); Strep agal(GrpB) Not Reported Not Detected (NotDetected); Strep pneum Not Reported Not Detected (NotDetected); Strep pyog (GrpA) Not Reported Not Detected (NotDetected); Strep spp Not Reported Not Detected (NotDetected); VIM Resistant Gene Not Detected (NotDetected); mcr-1 Colistin Resistant Gene Not Detected (NotDetected)
[2023-04-14] MEDS ORDERED: ERTAPENEM SODIUM 1,000 MG in SYRINGE 0 ML IV SCH (12:15)
[2023-04-14] MEDS: ACETAMINOPHEN 325 MG TAB PO PRN (12:35)
[2023-04-14] MEDS ORDERED: cefTRIAXone SODIUM 2,000 MG in DEXTROSE 5% 50 ML IV SCH (16:15)
--- NOTE | 2023-04-14 20:12 | Hospitalist Progress Note ---
Date of Service April 14, 2023 Assessment & Plan (1) Septicemia: Plan: blood cultures from admission + for GNR. BioFire panel shows the pathogen is e.coli. in the event she has ESBL e.coli change rocephin to ertapenem 1gm Daily. recheck blood cx's x 2 sets tomorrow for test of cure. supportive care. s/p L stent placement today for obstructing stone(s). (2) Bacteremia due to Escherichia coli: Plan: as above (3) Left nephrolithiasis: Plan: either 10mm stone vs 2 stones [id number] s/p cystoscopy and L ureteral stent placement by Dr Frye today appreciate his assistance he noted during the procedure that the urine coming from the left kidney was severely purulent this may be c/w pyelonephritis cont pain control prn, flomax, IVF (4) Pyelonephritis: Plan: left-sided as above cont IV abx (5) UTI (urinary tract infection): Plan: 2nd to presumed e.coli change rocephin to ertapenem to cover for the possibility of ESBL pathogens follow all cultures including intra-op urine cx (6) YEHUDA (acute kidney injury): Plan: Cr 1.7 at admission likely multifactorial - sepsis related, dehydration, and obstructive from her L ureteral stone(s) Cr improved today to 1.1 BMP am cont IV fluids but can lower fluid rate to 75cc/hr (7) Hydronephrosis due to obstruction of ureter: Plan: left s/p ureteral stent today (8) HTN (hypertension): Plan: HOLD losartan due to YEHUDA BPs controlled w/o it (9) Dyslipidemia: Plan: remains on lipitor 10mg daily (10) DVT prophylaxis: Plan: heparin 5000 BID - since renal function is improved change to TID dosing Plan updated at bedside can allow full liquid diet as tolerated Admission and Anticipated Discharge Date Admission Date: April 13, 2023 Subjective tele overnight wnl patient resting in bed comfortably I saw her after her cysto/stent placement procedure was at bedside denies any back/flank/abd pain she has little appetite tolerated clear liquid tray post-op but wasn't hungry no vomiting fortunately feels tired has had stent placement 1 other time during her lifetime sister has kidney stones Review of Systems Review of Systems: gen - fevers, poor appetite, weak/tired cv - no chest pain pulm - no dyspnea GI - no abd pain - no dysuria Physical Exam Physical Exam: gen - looks sick but nontoxic, awake/alert, NAD mouth - MMM neck - no JVD heart - RRR, s1 s2, no murmur lungs - CTA b/l back - no flank tenderness b/l to palpation abd - soft NT ND BS+; no HSM ext - no edema, pulses 2+ b/l psych - a/o x 3 Results & Data Results & Data Vital Signs (Past 12 Hours) Vital Signs Temp Pulse Pulse Pulse Resp BP Pulse Ox 04/14/23 19:45 37.6 C H 90 20 135/72 95 04/14/23 16:00 86 04/14/23 15:18 37.7 C H 88 18 114/66 95 04/14/23 12:00 38.5 C H 82 19 145/75 H 97 04/14/23 11:00 76 18 131/76 95 04/14/23 11:20 36.3 C L 87 15 139/69 94 04/14/23 11:10 81 17 137/73 96 04/14/23 10:50 36.3 C L 84 14 111/59 L 94 O2 Del Method 04/14/23 19:45 Room Air 04/14/23 16:00 04/14/23 15:18 Room Air 04/14/23 12:00 Room Air 04/14/23 11:00 Room Air 04/14/23 11:20 Room Air 04/14/23 11:10 Room Air 04/14/23 10:50 Room Air Laboratory Results Laboratory Results - last 24 hr 04/13/23 04/14/23 04/14/23 16:04 07:09 07:09 WBC 13.66 H RBC 4.07 L Hgb 11.8 L Hct 35.3 L MCV 86.7 MCH 29.0 MCHC 33.4 RDW Std Deviation 42.7 RDW Coeff of Ayad 13.6 Plt Count 154 MPV 10.7 Immature Gran % (Auto) 4.6 Neut % (Auto) 84.7 Lymph % (Auto) 4.0 Mathews % (Auto) 6.0 Eos % (Auto) 0.4 Baso % (Auto) 0.3 Neut # (Auto) 11.58 H Lymph # (Auto) 0.54 L Mathews # (Auto) 0.82 H Eos # (Auto) 0.05 Baso # (Auto) 0.04 Immature Gran # (Auto) 0.63 H Sodium Potassium Chloride Carbon Dioxide Anion Gap BUN Creatinine Est Cr Clr Drug Dosing Est GFR ( Amer) Est GFR (Non-Af Amer) BUN/Creatinine Ratio Glucose Calcium Enterobacterales (PCR) DETECTED A E. coli (PCR) DETECTED A Hepatitis C Ab (EIA) NON-REACTIVE Hep C Ab Signal/Cutoff <0.02 mcr-1 Colistin Res Gene PCR Not Detected blaIMP Car res Gene PCR Not Detected KPC-Carbap Res Gene PCR Not Detected blaNDM Car Res Gene PCR Not Detected OXA-48 Carbapenem Resis Gene (PCR) Not Detected blaVIM Car Res Gene PCR Not Detected CTX-M Gene Resistance (PCR) Not Detected Bld Cult ID Panel PCR See PCR Comment 04/14/23 07:09 WBC RBC Hgb Hct MCV MCH MCHC RDW Std Deviation RDW Coeff of Ayad Plt Count MPV Immature Gran % (Auto) Neut % (Auto) Lymph % (Auto) Mathews % (Auto) Eos % (Auto) Baso % (Auto) Neut # (Auto) Lymph # (Auto) Mathews # (Auto) Eos # (Auto) Baso # (Auto) Immature Gran # (Auto) Sodium 140 Potassium 3.5 Chloride 110 H Carbon Dioxide 21 Anion Gap 9 BUN 20 Creatinine 1.13 D Est Cr Clr Drug Dosing 45.9 Est GFR ( Amer) 59.9 Est GFR (Non-Af Amer) 51.7 BUN/Creatinine Ratio 17.7 Glucose 112 H Calcium 8.3 L Enterobacterales (PCR) E. coli (PCR) Hepatitis C Ab (EIA) Hep C Ab Signal/Cutoff mcr-1 Colistin Res Gene PCR blaIMP Car res Gene PCR KPC-Carbap Res Gene PCR blaNDM Car Res Gene PCR OXA-48 Carbapenem Resis Gene (PCR) blaVIM Car Res Gene PCR CTX-M Gene Resistance (PCR) Bld Cult ID Panel PCR Diagnostic Findings Microbiology 04/13/23 16:04 Blood Aerobic Blood Culture - Preliminary Gram negative bacilli 04/13/23 16:04 Blood Anaerobic Blood Culture - Preliminary No growth in Anaerobic bottle after 24 hours. 04/13/23 16:04 Blood Aerobic Blood Culture - Preliminary Gram negative bacilli 04/13/23 16:04 Blood Anaerobic Blood Culture - Preliminary No growth in Anaerobic bottle after 24 hours. 04/13/23 15:30 Urine,Clean Catch Urine Culture - Preliminary Gram negative bacilli PG Care Time/CCT Total # of Minutes Spent Total Time Spent with Patient: Total time spent is greater than 50% in coordination of care (as documented) at patient's floor/unit and/or counseling patient: Coding Level of Care Code 31333 SUB INP/OBS CARE 2/35MIN Diagnoses Septicemia A41.9 Bacteremia due to Escherichia coli R78.81; B96.20 Left nephrolithiasis N20.0 Pyelonephritis N12 UTI (urinary tract infection) N39.0 YEHUDA (acute kidney injury) N17.9 Hydronephrosis due to obstruction of ureter N13.1 HTN (hypertension) I10 Dyslipidemia E78.5 DVT prophylaxis Z29.9
[2023-04-14] MEDS: ATORVASTATIN 10 MG TAB PO SCH (20:22)
[2023-04-15] MEDS: ACETAMINOPHEN 325 MG TAB PO PRN (02:42)
[2023-04-15] MEDS: HEPARIN SOD 5,000 UNIT/0.5 ML VIAL SQ SCH ×3 (06:04→22:05)
--- NOTE | 2023-04-15 06:32 | Electrocardiogram Report ---
Test Reason : Blood Pressure : / mmHG Vent. Rate : 091 BPM Atrial Rate : 091 BPM P-R Int : 124 ms QRS Dur : 092 ms QT Int : 420 ms P-R-T Axes : 048 005 024 degrees QTc Int : 516 ms Normal sinus rhythm Prolonged QT Nonspecific ST abnormality Abnormal ECG No previous ECGs available Confirmed by Kwadwo Bill ([id number]) on 04/15/2023 6:32:03 AM Referred By: Denisa Black Confirmed By:Kwadwo Bill
[2023-04-15 07:20] LABS: Basophils # (auto) 0.07 K/uL (0-0.2); Basophils % (auto) 0.6 %; Eosinophils # (auto) 0.05 K/uL (0-0.50); Eosinophils % (auto) 0.4 %; Hematocrit (blood only) 34.3 % (37.0-47.0); Hemoglobin 11.4 g/dl (12.0-16.0); Immature Granulocytes % (auto) 4.2 %; Lymphocytes # (auto) 0.83 K/uL (1.2-3.4); Mean Corpuscular Hemoglobin 28.8 pg (25.0-34.0); Mean Corpuscular Hgb Conc 33.2 g/dL (32.0-36.0); Mean Corpuscular Volume 86.6 fL (80.0-100.0); Mean Platelet Volume 10.8 fL (9.4-12.4); Monocytes # (auto) 0.93 K/uL (0.11-0.59); Monocytes % (auto) 7.8 %; Platelet Count 200 K/uL (130-400); RDW Coefficient of Variation 13.8 % (11.5-14.5); RDW Standard Deviation 43.8 fL (36.4-46.3); Red Blood Count 3.96 M/uL (4.20-5.40); White Blood Count 11.88 K/ul (4.8-10.8)
[2023-04-15 07:24] LABS: BUN Creatinine Ratio 13.3 (10-20); Calcium 8.1 mg/dl (8.6-10.3); Creatinine Clr Calc Pharmacy 49.3 ml/min; Est GFR (African American) 65.5 ml/min; Est GFR (Non-African American) 56.5 ml/min; Potassium 3.6 mmol/L (3.5-5.1)
[2023-04-15] MEDS: ASPIRIN 81 MG ECTAB PO SCH (09:15)
[2023-04-15] MEDS: FINASTERIDE 5 MG TAB PO SCH (09:15)
[2023-04-15] MEDS: TAMSULOSIN HCL 0.4 MG CAP PO SCH (09:15)
[2023-04-15] MEDS: SODIUM CHLORIDE 0.9% 1000ML 1,000 ML IV SCH (09:18)
[2023-04-15] MEDS: CIPROFLOXACIN / D5W 400 MG/200 ML BAG IV SCH ×2 (10:25→22:05)
[2023-04-15] MEDS: ADVANCED PROBIOTIC 1250 MG CAPSULE PO SCH (10:27)
--- NOTE | 2023-04-15 20:06 | Hospitalist Progress Note ---
Date of Service April 15, 2023 Assessment & Plan (1) Septicemia: Plan: blood cultures from admission + for GNR. BioFire panel shows the pathogen is e.coli. source - urinary tract. Urine cx with pansensitive e.coli. d/c ertapenem, change to IV cipro. blood cx's x 2 sets today for test of cure. she is s/p L stent placement today for obstructing stone(s). planning 14 day course of IV/PO abx -- likely cipro. (2) Bacteremia due to Escherichia coli: Plan: as above (3) Left nephrolithiasis: Plan: either 10mm stone vs 2 stones [id number] POD #1 - s/p cystoscopy and L ureteral stent placement by Dr Frye appreciate his assistance he noted during the procedure that the urine coming from the left kidney was severely purulent this is c/w pyelonephritis urine cx from the L kidney is indeed growing GNR - likely to be e.coli as well cont pain control prn, flomax can stop IV fluids - she is drinking well and creatinine is normal today follow-up on all cultures (4) Pyelonephritis: Plan: left-sided as above (5) UTI (urinary tract infection): Plan: 2nd to e.coli see above (6) YEHUDA (acute kidney injury): Plan: Cr 1.7 at admission likely multifactorial - sepsis related, dehydration, and obstructive from her L ureteral stone(s) Cr improved today to 1 BMP am can stop IVF today (7) Hydronephrosis due to obstruction of ureter: Plan: left POD #1 s/p ureteral stent (8) HTN (hypertension): Plan: cont to HOLD losartan -- BPs remain controlled w/o it (9) Dyslipidemia: Plan: lipitor 10mg daily (10) DVT prophylaxis: Plan: heparin 5000 TID Plan updated at bedside advance diet to regular diarrhea - c diff negative abx-associated diarrhea thus add lactinex home next 1-2 days Admission and Anticipated Discharge Date Admission Date: April 13, 2023 Subjective patient feels MUCH better today more energy eating better no pain in her back/abdomen/flank did have copious diarrhea overnight and early this am no fevers no LUTS tele stable at bedside - he is happy with her progress Review of Systems Review of Systems: gen - no fevers or chills cv - no chest pain pulm - no dyspnea GI - no abd pain or N/V Physical Exam Physical Exam: gen - looks much better today; NAD mouth - MMM neck - no JVD heart - RRR, s1 s2, no murmur lungs - CTA b/l back - no flank tenderness to palpation b/l abd - soft NT ND BS+; no HSM ext - no edema, pulses 2+ b/l psych - a/o x 3 Results & Data Results & Data Vital Signs (Past 12 Hours) Vital Signs Temp Pulse Pulse Pulse Resp BP Pulse Ox 04/15/23 19:00 37.1 C 87 20 116/67 95 04/15/23 15:00 90 04/15/23 15:00 36.5 C 83 18 125/86 98 04/15/23 12:07 37.3 C 90 18 125/77 98 O2 Del Method 04/15/23 19:00 Room Air 04/15/23 15:00 04/15/23 15:00 Room Air 04/15/23 12:07 Room Air Laboratory Results Laboratory Results - last 24 hr 04/14/23 04/15/23 04/15/23 07:09 06:39 06:39 WBC 11.88 H RBC 3.96 L Hgb 11.4 L Hct 34.3 L MCV 86.6 MCH 28.8 MCHC 33.2 RDW Std Deviation 43.8 RDW Coeff of Ayad 13.8 Plt Count 200 MPV 10.8 Immature Gran % (Auto) 4.2 Neut % (Auto) 80.0 Lymph % (Auto) 7.0 [place] % (Auto) 7.8 Eos % (Auto) 0.4 Baso % (Auto) 0.6 Neut # (Auto) 9.50 H Lymph # (Auto) 0.83 L [place] # (Auto) 0.93 H Eos # (Auto) 0.05 Baso # (Auto) 0.07 Immature Gran # (Auto) 0.50 H Sodium 139 Potassium 3.6 Chloride 110 H Carbon Dioxide 24 Anion Gap 5 BUN 14 Creatinine 1.05 Est Cr Clr Drug Dosing 49.3 Est GFR ( Amer) 65.5 Est GFR (Non-Af Amer) 56.5 BUN/Creatinine Ratio 13.3 Glucose 116 H Calcium 8.1 L Stl C. diff Tox B Gene Hepatitis C Ab (EIA) NON-REACTIVE Hep C Ab Signal/Cutoff <0.02 04/15/23 18:05 WBC RBC Hgb Hct MCV MCH MCHC RDW Std Deviation RDW Coeff of Ayad Plt Count MPV Immature Gran % (Auto) Neut % (Auto) Lymph % (Auto) [place] % (Auto) Eos % (Auto) Baso % (Auto) Neut # (Auto) Lymph # (Auto) [place] # (Auto) Eos # (Auto) Baso # (Auto) Immature Gran # (Auto) Sodium Potassium Chloride Carbon Dioxide Anion Gap BUN Creatinine Est Cr Clr Drug Dosing Est GFR ( Amer) Est GFR (Non-Af Amer) BUN/Creatinine Ratio Glucose Calcium Stl C. diff Tox B Gene Negative Cdiff Gene Hepatitis C Ab (EIA) Hep C Ab Signal/Cutoff Diagnostic Findings urine cx - e.coli - pansensitive blood cx's - 12/09 - positive for GNR with biofire showing e.coli PG Care Time/CCT Total # of Minutes Spent Total Time Spent with Patient: Total time spent is greater than 50% in coordination of care (as documented) at patient's floor/unit and/or counseling patient: Coding Level of Care Code 83164 SUB INP/OBS CARE 2/35MIN Diagnoses Septicemia A41.9 Bacteremia due to Escherichia coli R78.81; B96.20 Left nephrolithiasis N20.0 Pyelonephritis N12 UTI (urinary tract infection) N39.0 YEHUDA (acute kidney injury) N17.9 Hydronephrosis due to obstruction of ureter N13.1 HTN (hypertension) I10 Dyslipidemia E78.5 DVT prophylaxis Z29.9
[2023-04-15] MEDS: ATORVASTATIN 10 MG TAB PO SCH (22:05)
[2023-04-16] MEDS: HEPARIN SOD 5,000 UNIT/0.5 ML VIAL SQ SCH (06:12)
[2023-04-16 07:57] LABS: Hematocrit (blood only) 34.2 % (37.0-47.0); Hemoglobin 11.4 g/dl (12.0-16.0); Mean Corpuscular Hemoglobin 28.9 pg (25.0-34.0); Mean Corpuscular Hgb Conc 33.3 g/dL (32.0-36.0); Mean Corpuscular Volume 86.6 fL (80.0-100.0); Mean Platelet Volume 10.7 fL (9.4-12.4); Platelet Count 237 K/uL (130-400); RDW Coefficient of Variation 13.8 % (11.5-14.5); RDW Standard Deviation 44.1 fL (36.4-46.3); Red Blood Count 3.95 M/uL (4.20-5.40); White Blood Count 10.67 K/ul (4.8-10.8)
[2023-04-16 08:18] LABS: BUN Creatinine Ratio 15.8 (10-20); Calcium 8.6 mg/dl (8.6-10.3); Creatinine Clr Calc Pharmacy 51.3 ml/min; Est GFR (African American) 68.6 ml/min; Est GFR (Non-African American) 59.2 ml/min; Potassium 3.9 mmol/L (3.5-5.1)
[2023-04-16] MEDS: TAMSULOSIN HCL 0.4 MG CAP PO SCH (08:34)
[2023-04-16] MEDS: FINASTERIDE 5 MG TAB PO SCH (08:34)
[2023-04-16] MEDS: ASPIRIN 81 MG ECTAB PO SCH (08:34)
[2023-04-16] MEDS: ADVANCED PROBIOTIC 1250 MG CAPSULE PO SCH (08:35)
[2023-04-16 10:11] LABS: Magnesium 1.8 mg/dl (1.7-2.4)
[2023-04-16] MEDS ORDERED: levoFLOXacin 750 MG TAB PO SCH (11:00)
[2023-04-16 12:40] LABS: ALC (manual) 0.53 K/uL (1.2-3.4); ANC (manual) 8.96 K/uL (1.4-6.5); Eosinophils # (manual) 0.11 K/uL (0-0.50); Eosinophils % (manual) 1 %; Lymphocytes # (manual) 0.53 K/uL (1.2-3.4); Lymphocytes % (manual) 5 %; Metamyelocytes # (manual) 0.11 K/uL (0-0); Metamyelocytes % (manual) 1 %; Monocytes # (manual) 0.53 K/uL (0.11-0.59); Monocytes % (manual) 5 %; Myelocytes # (manual) 0.43 K/uL (0-0); Myelocytes % (manual) 4 %; Neutrophils # (manual) 8.96 K/uL (1.40-6.50); Neutrophils % (manual) 84 %
--- NOTE | 2023-04-16 13:54 | Discharge Summary ---
Date of Service April 16, 2023 Admission HPI Per Admitting Provider Thania is a 62-year-old female with a past medical history of hypertension, dyslipidemia, kidney stones who presents for evaluation of pain suspected related to a recurrent kidney stone. Pain began in the left lower quadrant 2 days prior to presentation, has had increased urinary frequency. While her initial abdominal pain and frequency improved, she continues to be fatigued and went to see her PCP at which visit she was noted to be febrile. She was placed empirically on Bactrim and had an outpatient CT scan which showed a 10 mm obstructing calculus in the left proximal ureter with associated hydronephrosis and was referred to the ER. Weds-Today LLQ pain and polyuria. No dysuria. Pain initially felt similar to prior stones, now improved. Has had stents for recurrent history of stones in the past, no stents currently. 1/2 bowel cereal this mroning No nausea but +vomiting with pain. Shaking chills/rigors this morning and we night Temp was 96 at home, but earlier in the morning at PCP was 100.6 HR this morning 140s. HTN on losartan, some lability between 120-140. Takes a daily aspirin but does not know why. NO hx TN or Stroke. no history of DM. Had a stress test in 2019, normal, does not remember exactly why but denies any heart problems/chest pain/angina. No blood vessle problems, no lung problems, no heart problems No diarrhea/constipation Medical History: Reviewed. Medications: Reviewed Surgical History: Reviewed Family history: Reviewed Allergies: Reviewed. lisinopril cough. Social History: No tobacco, rare social ETOH intermittently. Code Status:Full Discharge Exam gen - looks much better today; NAD mouth - MMM neck - no JVD heart - RRR, s1 s2, no murmur lungs - CTA b/l back - no flank tenderness to palpation b/l abd - soft NT ND BS+; no HSM ext - no edema, pulses 2+ b/l psych - a/o x 3 Discharge Data Allergies Allergy/AdvReac Type Severity Reaction Status Date / Time shellfish derived AdvReac Intermediate Gastrointestinal Verified 04/13/23 10:19 Upset lisinopril AdvReac cough Verified 04/13/23 10:19 Consultations 04/13/23 15:49 ED Decision to Admit Stat Procedures Performed Operation Date: 04/14/23 09:00 Actual Procedures p Cystoscopy, Urine aspiration, Stent Insertion(Left) - Hermes Frye, DO Ordered Studies 04/14/23 09:06 FL retrograde includes kub Routine Hospital Course (1) Septicemia: blood cultures from admission + for GNR. BioFire panel shows the pathogen is e.coli. source - urinary tract. Urine cx with pansensitive e.coli. d/c ertapenem, change to IV cipro. blood cx's x 2 sets today for test of cure. she is s/p L stent placement today for obstructing stone(s). planning 14 day course of IV/PO abx -- likely cipro. (2) Bacteremia due to Escherichia coli: as above (3) Left nephrolithiasis: either 10mm stone vs 2 stones [id number] POD #1 - s/p cystoscopy and L ureteral stent placement by Dr Frye appreciate his assistance he noted during the procedure that the urine coming from the left kidney was severely purulent this is c/w pyelonephritis urine cx from the L kidney is indeed growing GNR - likely to be e.coli as well cont pain control prn, flomax can stop IV fluids - she is drinking well and creatinine is normal today follow-up on all cultures (4) Pyelonephritis: left-sided as above (5) UTI (urinary tract infection): 2nd to e.coli see above (6) YEHUDA (acute kidney injury): Cr 1.7 at admission likely multifactorial - sepsis related, dehydration, and obstructive from her L ureteral stone(s) Cr improved today to 1 BMP am can stop IVF today (7) Hydronephrosis due to obstruction of ureter: left POD #1 s/p ureteral stent (8) HTN (hypertension): cont to HOLD losartan -- BPs remain controlled w/o it (9) Dyslipidemia: lipitor 10mg daily (10) DVT prophylaxis: heparin 5000 TID Plan updated at bedside advance diet to regular diarrhea - c diff negative abx-associated diarrhea thus add lactinex home next 1-2 days Discharge Plan Discharge Items Patient Disposition: Home - Self-Care Reason For Visit: Left sided kidney stones, Urinary tract infection Discharge Diagnosis: 1. left-sided kidney stone(s) with placement of stent by Dr Hermes Frye 2. urinary tract infection - resolving 3. bacteremia / septicemia (infection in the blood stream) - resolving 4. left-sided pyelonephritis (kidney infection) - resolving Activity: As commented below Activity Comment: light activities only; no heavy exertional activities Lifting: No more than 10 pounds Sexual Activity: Wait until after follow-up appointment Exercise/Sports: Wait until after follow-up appointment Driving/Machine Use: Resume 3 days after discharge Non-emergency contact: Primary Care Provider and Urologist Call non-emergency contact if: you have any medication questions, your symptoms worsen and you have a fever Follow-up/Referrals: Denisa Black MD [Primary Care Provider] - 04/25/23 2:45 pm Hermes Frye DO [Physician] - 05/01/23 8:30 am Angeles Mena MD [Physician] - 04/27/23 8:00 am Diet: Regular Addtl Attending Provider Instructions: Mrs Brand, You were hospitalized due to urinary tract infection in the setting of a kidney stone(s) in your left ureter. You were treated with antibiotics (IV, then oral) for your urinary tract infection. During the stay we discovered that you likely have left-sided kidney infection. You also had evidence of bloodstream infection - also known as "bacteremia." The culprit bacterium that caused your infection was e.coli. The e.coli started in the urinary tract and spread to the bloodstream. [facility] was consulted and performed a stent procedure in which they placed a stent into your left ureter. Following surgery you did well and your illness improved with time and a ntibiotics. Recommendations - 1. For bloodstream infection / urinary tract infection - * levofloxacin 750mg once daily x 10 days, first dose on 04/17/23 * take probiotics once daily for 10 days as well; this may help prevent diarrhea from your antibiotic * both prescriptions sent to [facility] for you 2. For prevention of stent pain take - * tamsulosin 0.4mg once daily 3. For urinary pain & burning you may take - * phenazopyridine 100mg every 8 hours as needed * this medication will make your urine and tears orange color; this is normal 4. For bladder pain & spasms you may take - * oxybutinin 5mg every 12 hours as needed * this medication sometimes causes dry eyes, dry mouth, and constipation 5. Please STOP any previous antibiotic given to you before this hospital admission. 6. Please STOP your losartan at this time. 7. Focus on good hydration & nutrition as you recover from your illness. It will take another 1-2 weeks to fully recover from the bloodstream infection. This is not unusual with this type of infection. 8. For pain you can take [id number] tylenol, 1000mg every 6 hours as needed for pain/discomforts; maximum 3000mg in 24 hours. Follow-up - see separate section Return to [facility] if - * you have recurrent fevers over 100 degrees * you see large amounts of blood in your urine * you have difficulty passing your urine * you have severe back, flank, or abdominal pains * you develop severe diarrhea * any other concerns It was our pleasure to care for you! -Dr Encinas Pending Studies at Discharge: Yes Studies:: repeat blood cultures but thus far negative Stand-Alone Forms: My [facility], Smoking Cessation Medications and DC Order Prescriptions: New levofloxacin 750 mg Tablet 750 mg PO DAILY@1100 10 Days Qty: 10 0RF Rx Instructions: first dose on 04/17/23. Advanced Probiotic 625 mg (10 billion cell) Capsule 2 cap PO DAILY 10 Days Qty: 20 0RF phenazopyridine [Pyridium] 100 mg tablet 100 mg PO Q8H PRN (Reason: urinary pain/burning) Qty: 10 0RF oxybutynin chloride 5 mg tablet 5 mg PO Q12H PRN (Reason: bladder spasms) Qty: 10 0RF Continued aspirin 81 mg tablet,delayed release (DR/EC) 81 mg PO QAM atorvastatin 10 mg tablet 10 mg PO PM multivitamin tablet 1 tab PO QAM cholecalciferol (vitamin D3) 2,000 unit capsule 2,000 units PO QAM finasteride 5 mg tablet 2.5 mg PO DAILY Qty: 60 2RF vitamin E 400 unit Capsule 400 unit PO QAM loratadine [Claritin] 10 mg Tablet 10 mg PO DAILY PRN (Reason: Allergy Symptoms) tamsulosin 0.4 mg capsule 0.4 mg PO DAILY Qty: 30 0RF Rx Instructions: for prevention of ureteral stent pain, etc Held losartan 25 mg tablet 25 mg PO DAILY Qty: 90 3RF Hold Instructions: do not resume unless recommended by your family doctor Discontinued sulfamethoxazole-trimethoprim [Bactrim DS] 800-160 mg tablet 1 tab PO BID 5 Days Qty: 10 0RF calcium carbonate-vitamin D3 [Calcium 600 + D(3)] 600 mg(1,500mg) -200 unit Tablet 1 tab PO QAM Discharge Orders: Discharge Order (Routine); Ordered 04/16/23 Ordered By: Jose Encinas Admission Data Admit Date/Time: 04/13/23 16:03 Attending Provider: Jose Encinas Admit Provider: Jamir Saucedo Primary Care Provider: Denisa Black Other Providers: Jamir Saucedo Coding Diagnoses Septicemia A41.9 Bacteremia due to Escherichia coli R78.81; B96.20 Left nephrolithiasis N20.0 Pyelonephritis N12 UTI (urinary tract infection) N39.0 YEHUDA (acute kidney injury) N17.9 Hydronephrosis due to obstruction of ureter N13.1 HTN (hypertension) I10 Dyslipidemia E78.5 DVT prophylaxis Z29.9
--- NOTE | 2023-04-16 18:04 | Electrocardiogram Report ---
Test Reason : Blood Pressure : / mmHG Vent. Rate : 093 BPM Atrial Rate : 093 BPM P-R Int : 120 ms QRS Dur : 086 ms QT Int : 368 ms P-R-T Axes : 040 009 023 degrees QTc Int : 457 ms Normal sinus rhythm Minimal voltage criteria for LVH, may be normal variant Borderline ECG When compared with ECG of 13-APR-2023 16:18, QT has shortened Confirmed by Santos Mckinnon ([id number]) on 04/16/2023 6:04:23 PM Referred By: Denisa Black Confirmed By:Francisco Javier Mckinnon
== END 2023-04-16 15:15 | disposition home or self-care (01) | DRG 854 ==
LOC: ED 13:45 → 2W 16:03 → SUATTDRO 16:03 → 2W 19:25